=== PATIENT | female | born 1965 | race Two or more races ===

== ENCOUNTER 2020-06-25 23:33 | Emergency (ER) | payer MEDICAID ==
[~2020-06-25] VITALS: Ht 165.1 cm; Wt 79.4 kg
[2020-06-25 23:37] VITALS: BP 170/102
[2020-06-26 00:07] LABS: BASOPHILS % (AUTO) 0.3 % (0.0-2.0); EOSINOPHILS % (AUTO) 1.1 % (0.0-6.0); HEMATOCRIT 43 % (33-45); HEMOGLOBIN 14.5 g/dL (11.5-14.8); LYMPHOCYTES # (AUTO) 3.9 /CMM (0.8-4.8); MEAN CORPUSCULAR HGB CONC 34 g/dl (31.0-36.0); MEAN CORPUSCULAR VOLUME 92 fL (82-100); MONOCYTES # (AUTO) 0.8 /CMM (0.1-1.30); MONOCYTES % (AUTO) 6.7 % (2.0-12.0); NEUTROPHILS # (AUTO) 7.7 /CMM (1.8-8.9); NEUTROPHILS % (AUTO) 60.9 % (43.0-81.0); PLATELET COUNT (AUTO) 224 /CMM (150-450); WHITE BLOOD COUNT (AUTO) 12.6 K/uL (4.3-11.0)
[2020-06-26 00:39] LABS: CALCIUM, SERUM 9.6 mg/dL (8.5-10.1); CREATININE 1.5 mg/dL (0.6-1.3); POTASSIUM 3.8 mmol/L (3.5-5.1)
== END 2020-06-26 01:09 | disposition home or self-care (01) ==
LOC: ER 23:39
DX: R25.2 Cramp and spasm (principal); M79.662 Pain in left lower leg; M79.661 Pain in right lower leg; I10 Essential (primary) hypertension; E11.9 Type 2 diabetes mellitus without complications; Z60.2 Problems related to living alone
CPT/HCPCS: 36415; 80048-TC; 85025-TC